=== PATIENT | female | born 1965 | race African-American/Black ===

== ENCOUNTER 2016-05-05 12:16 | Emergency (ER) | payer MEDICARE ==
[~2016-05-05] VITALS: Ht 157.5 cm; Wt 87.1 kg
[2016-05-05 13:23] VITALS: BP 149/94
--- NOTE | 2016-05-05 13:43 | PHYS DOC ---
Past Medical History Past Medical History: Diabetes-Type II, Hypertension, Other Additional Past Medical Histor: BRAIN TUMOR, BLIND L EYE Past Surgical History: Other Additional Past Surgical Histo: BRAIN TUMOR Alcohol Use: None Drug Use: None Adult General Chief Complaint Chief Complaint: LOWEREXTREMITY INJURY [facility] HPI Patient is a 51 year old female presents emergency department stating that she was at [facility] approximately a week ago when she had her left lower leg on the palate. She has a laceration that is approximately 1 cm in length. There does not appear to be any redness or drainage or discharge noted from the site. Patient states she's had increased tenderness around the area. She has not taken anything for pain and discomfort. She has not been placing ice packs on the area. She states that when she tries to walk that she has increased pain and discomfort. She denies any numbness or tingling down to her lower extremities. She is able to ambulate with a good steady gait. She does state her tetanus immunization is less than 5 years. Review of Systems Review of Systems Constitutional: Denies fever or chills [] Eyes: Denies change in visual acuity, redness, or eye pain [] HENT: Denies nasal congestion or sore throat [] Respiratory: Denies cough or shortness of breath [] Cardiovascular: No additional information not addressed in HPI [] GI: Denies abdominal pain, nausea, vomiting, bloody stools or diarrhea [] : Denies dysuria or hematuria [] Musculoskeletal: Denies back pain. C/o left lower leg pain Integument: Denies rash or skin lesions. Laceration left lower leg Neurologic: Denies headache, focal weakness or sensory changes [] Endocrine: Denies polyuria or polydipsia [] Allergies Allergies Allergies Coded Allergies Type Severity Reaction Last Updated Verified No Known Drug Allergies 05/05/16 No Physical Exam Physical Exam Constitutional: Well developed, well nourished, no acute distress, non-toxic appearance. [] HENT: Normocephalic, atraumatic, bilateral external ears normal, oropharynx moist, no oral exudates, nose normal. [] Eyes: PERRLA, EOMI, conjunctiva normal, no discharge. [] Neck: Normal range of motion, no tenderness, supple, no stridor. [] Cardiovascular:Heart rate regular rhythm Lungs & Thorax: No respiratory distress noted Skin: Warm, dry, no erythema, no rash. Patient with a 1 cm laceration that appears to be healing on the left lower salmon. There does not appear to be any drainage no discharge no redness or warmth. There is slight tenderness noted. No bruising noted around the area Back: No tenderness Extremities: No tenderness, no cyanosis, no clubbing, ROM intact, no edema. Tenderness to the left lower salmon area. Peripheral pulses 2+ cap refill brisk less than 2 seconds. Neurologic: Alert and oriented X 3, normal motor function, normal sensory function, no focal deficits noted. [] Psychologic: Affect normal, judgement normal, mood normal. [] Current Patient Data Vital Signs Vital Signs Date Time Temp Pulse Resp B/P Pulse Ox O2 Delivery O2 Flow Rate FiO2 05/05/16 13:23 97.7 91 16 100 Room Air 97.7 05/05/16 13:17 149/94 EKG EKG [] Radiology/Procedures Radiology/Procedures [] Course & Med Decision Making Course & Med Decision Making Pertinent Labs and Imaging studies reviewed. (See chart for details) Patient was recommended to keep the area clean and dry and clean the site with soap and water and apply antibiotic ointment twice a day. She was recommended to use Tylenol and ibuprofen and discomfort. Also recommended patient to use ice packs on 20 minutes off 20 minutes several times a day. Elevation as much as possible. Patient will be discharged home in stable condition signs and symptoms to return back to emergency department as been provided. [] Dragon Disclaimer Dragon Disclaimer This electronic medical record was generated, in whole or in part, using a voice recognition dictation system. Departure Departure Impression: Primary Impression: Contusion of left lower leg Disposition: 01 HOME, SELF-CARE Condition: STABLE Referrals: UNKNOWN PCP NAME (PCP) Patient Instructions: Contusion, [id number] Additional Instructions: Activity as tolerated. Keep the area clean and dry. Clean the site with soap and water and apply antibiotic ointment to the area twice a day. Ice packs on 20 minutes off 20 minutes several times a day. Elevation as much as possible. Ibuprofen for pain and discomfort. Follow-up the primary care physician next 7-10 days. Return back to emergency prior signs symptoms of become worse. LUDWIN BUENO NP May 05, 2016 13:43
== END 2016-05-05 13:53 | disposition home or self-care (01) ==
LOC: ER 12:16
DX: S80.12XA Contusion of left lower leg, initial encounter (principal); E11.9 Type 2 diabetes mellitus without complications; I10 Essential (primary) hypertension; X58.XXXA Exposure to other specified factors, initial encounter; Y93.89 Activity, other specified; Y92.89 Other specified places as the place of occurrence of the external cause; Y99.8 Other external cause status
CPT/HCPCS: 99281